=== PATIENT | female | born 1960 | race Caucasian/White ===

== ENCOUNTER 2023-09-09 15:15 | Outpatient (RCR) | payer BC, SELFPAY | END 2023-09-09 23:59 | disposition home or self-care (01) | LOC: RPT 15:15 | PROVIDERS: ATTENDING PHYSICIAN Family Medicine | DX: M76.31 Iliotibial band syndrome, right leg (principal); M25.561 Pain in right knee; R26.89 Other abnormalities of gait and mobility | CPT/HCPCS: 97110; 97140; 97164 ==

== ENCOUNTER 2023-10-28 15:55 | Outpatient (RCR) | payer BC, SELFPAY | END 2023-10-28 23:59 | disposition home or self-care (01) | LOC: RPT 15:55 | PROVIDERS: ATTENDING PHYSICIAN Family Medicine | DX: M25.561 Pain in right knee (principal); M76.31 Iliotibial band syndrome, right leg; Z73.6 Limitation of activities due to disability; R26.89 Other abnormalities of gait and mobility; R26.2 Difficulty in walking, not elsewhere classified; M62.81 Muscle weakness (generalized); M54.16 Radiculopathy, lumbar region | CPT/HCPCS: 97010; 97110; 97140 ==

== ENCOUNTER → 2023-11-15 07:07 | Outpatient (REF) | payer BC, SELFPAY | LOC: PAVMRI 07:07 | PROVIDERS: ATTENDING PHYSICIAN Pain Medicine Interventional Pain Medicine; FAMILY PHYSICIAN Internal Medicine | DX: M54.16 Radiculopathy, lumbar region (principal) | CPT/HCPCS: 72148 ==

== ENCOUNTER → 2023-12-11 13:15 | Outpatient (REF) | payer BC, SELFPAY ==
[2023-12-11 13:34] VITALS: BP 137/86; BP_SYST 67
[2023-12-11 13:34] LABS: Hematocrit 33.1 % (37.0-47.0); Hemoglobin 11.2 g/dL (12.0-16.0); Mean Corp Hgb Conc. 33.8 g/dL (33.0-37.0); Mean Corpuscular Hgb 30.3 pg (27.0-31.0); Mean Corpuscular Volume 89.5 fL (81.0-99.0); Mean Platelet Volume 10.7 fL (7.4-10.4); Platelet Count 255 10^3/uL (130-400); Red Cell Dist. Width 13.1 % (11.5-14.5); White Blood Cell Count 7.3 10^3/uL (4.8-10.8)
[2023-12-11 13:53] LABS: PT 13.2 Sec (11.4-14.6)
== END ==
LOC: RADI 13:15
PROVIDERS: ATTENDING PHYSICIAN Pain Medicine Interventional Pain Medicine; FAMILY PHYSICIAN Internal Medicine
DX: M54.16 Radiculopathy, lumbar region (principal); Z01.812 Encounter for preprocedural laboratory examination; Z01.818 Encounter for other preprocedural examination
CPT/HCPCS: 36415; 62323; 85027; 85610

== ENCOUNTER → 2023-12-24 11:00 | Outpatient (REF) | payer BC, SELFPAY ==
[2023-12-26 20:21] LABS: Bacterial Vaginosis by TMA Positive; Candida glabrata by TMA Negative; Candida species by TMA Negative; Trichomonas vaginalis by TMA Negative
== END ==
LOC: CLAB 11:00
PROVIDERS: ATTENDING PHYSICIAN Family Medicine
DX: N89.8 Other specified noninflammatory disorders of vagina (principal)
CPT/HCPCS: 81513; 87481; 87661

== ENCOUNTER → 2024-01-20 08:16 | Outpatient (REF) | payer BC, SELFPAY ==
[2024-01-20 09:29] LABS: % Basophils 1.2 % (0-2); % Lymphocytes 34.8 % (20.5-51.1); % Monocytes 9.5 % (1.7-9.3); % Neutrophils 51.5 % (42.2-75.2); Absolute Basophils 0.1 10^3/uL (0-0.2); Absolute Eosinophils 0.1 10^3/uL (0-0.7); Absolute Lymphocytes 1.5 10^3/uL (1.2-3.4); Absolute Monocytes 0.4 10^3/uL (0.1-0.6); Absolute Neutrophils 2.2 10^3/uL (1.4-6.5); Hemoglobin 11.2 g/dL (12.0-16.0); Mean Corp Hgb Conc. 33.9 g/dL (33.0-37.0); Mean Corpuscular Hgb 30.7 pg (27.0-31.0); Mean Corpuscular Volume 90.4 fL (81.0-99.0); Mean Platelet Volume 11.4 fL (7.4-10.4); Nucleated Red Blood Cells % 0 %; Platelet Count 257 10^3/uL (130-400); Red Blood Cell Count 3.65 10^6/uL (4.20-5.40); Red Cell Dist. Width 13.5 % (11.5-14.5); White Blood Cell Count 4.3 10^3/uL (4.8-10.8)
[2024-01-20 11:23] LABS: Glycohemoglobin (HgbA1c) 5.7 % (4.0-5.6)
[2024-01-20 12:00] LABS: ALT (SGPT) 21 U/L (0-35); AST (SGOT) 31 U/L (14-36); Alkaline Phosphatase 100 U/L (38-126); Blood Urea Nitrogen 15 mg/dl (7-17); Calcium 9.4 mg/dl (8.4-10.2); Carbon Dioxide 24 mmol/L (22-30); Chloride 104 mmol/L (98-107); Glucose 93 mg/dl (70-99); HDL Cholesterol 91 mg/dl; Potassium 4.6 mmol/L (3.5-5.1); Sodium 134 mmol/L (135-145); Total Bilirubin 0.5 mg/dl (0.2-1.3); Total Protein 6.6 g/dl (6.3-8.2); Triglyceride 77 mg/dl (10-149); Uric Acid 3.3 mg/dl (2.5-6.2); Very Low Density Lipoprotein 15 mg/dl (0-30); eGFR > 60.00
[2024-01-20 12:16] LABS: Free T4 1.11 ng/dl (0.78-2.19)
[2024-01-20 12:31] LABS: TSH 0.78 uIU/ml (0.47-4.68)
[2024-01-20 12:59] LABS: LDL Cholesterol, Calculated 78 mg/dl; Total Cholesterol 184 mg/dl (50-199)
== END ==
LOC: REG 08:16
PROVIDERS: ATTENDING PHYSICIAN Internal Medicine; FAMILY PHYSICIAN Family Medicine
DX: E78.2 Mixed hyperlipidemia (principal); I10 Essential (primary) hypertension; G47.33 Obstructive sleep apnea (adult) (pediatric); R73.03 Prediabetes; E88.810 Metabolic syndrome
CPT/HCPCS: 36415; 80053; 80061; 83036; 84439; 84443; 84550; 85025

== ENCOUNTER → 2024-01-24 12:21 | Outpatient (REF) | payer BC, SELFPAY ==
[2024-01-24 12:59] VITALS: BP 145/85; BP_SYST 64
[2024-01-24 13:45] VITALS: BP 135/77
== END ==
LOC: RADI 12:21
PROVIDERS: ATTENDING PHYSICIAN Pain Medicine Interventional Pain Medicine; FAMILY PHYSICIAN Internal Medicine
DX: M54.16 Radiculopathy, lumbar region (principal)
CPT/HCPCS: 62323

== ENCOUNTER → 2024-02-10 13:29 | Outpatient (REF) | payer BC, SELFPAY ==
[2024-02-10 13:45] VITALS: BP 147/79; BP_SYST 59
[2024-02-10 14:20] VITALS: BP 140/58; BP_SYST 59
[2024-02-10 14:23] VITALS: BP 140/58; BP_SYST 59
[2024-02-10 14:24] VITALS: BP 140/58
== END ==
LOC: RADI 13:29
PROVIDERS: ATTENDING PHYSICIAN Pain Medicine Interventional Pain Medicine; FAMILY PHYSICIAN Internal Medicine
DX: M54.16 Radiculopathy, lumbar region (principal)
CPT/HCPCS: 62323

== ENCOUNTER → 2024-03-10 11:19 | Outpatient (REF) | payer BC, SELFPAY ==
[2024-03-10 12:08] LABS: Urine Albumin Negative (Neg - Trace); Urine Bilirubin 2+ (Negative); Urine Character Clear (Clear); Urine Glucose Negative (Negative); Urine Ketone Negative (Negative); Urine Leukocyte 1+ (Negative); Urine Nitrite Positive (Negative); Urine Occult Blood Negative (Negative); Urine Urobilinogen 3+ (Neg - 1+)
[2024-03-10 12:26] LABS: Urine Color Orange
[2024-03-10 12:38] LABS: Urine Bacteria Few (Negative); Urine Squamous Cell 26-30 /LPF (Few); Urine White Cell 50-60 /HPF (0-5)
[2024-03-10 12:39] LABS: Urine Red Blood Cell 0-2 /HPF (0-2)
== END ==
LOC: REG 11:19
PROVIDERS: ATTENDING PHYSICIAN Family Medicine
DX: N39.0 Urinary tract infection, site not specified (principal)
CPT/HCPCS: 81003; 81015; 87077; 87086; 87186

== ENCOUNTER → 2024-04-20 08:37 | Outpatient (REF) | payer BC, SELFPAY ==
[2024-04-20 11:37] LABS: Urine Albumin Negative (Neg - Trace); Urine Bilirubin Negative (Negative); Urine Character Clear (Clear); Urine Color Yellow; Urine Glucose Negative (Negative); Urine Ketone Negative (Negative); Urine Leukocyte 2+ (Negative); Urine Nitrite Negative (Negative); Urine Occult Blood Negative (Negative); Urine Urobilinogen Negative (Neg - 1+)
[2024-04-20 11:40] LABS: % Eosinophils 2.5 % (0-6); % Immature Granulocytes 0.2 % (0-0.5); % Lymphocytes 30.1 % (20.5-51.1); % Neutrophils 57.2 % (42.2-75.2); Absolute Basophils 0.1 10^3/uL (0-0.2); Absolute Eosinophils 0.1 10^3/uL (0-0.7); Absolute Lymphocytes 1.5 10^3/uL (1.2-3.4); Absolute Monocytes 0.4 10^3/uL (0.1-0.6); Absolute Neutrophils 2.8 10^3/uL (1.4-6.5); Hematocrit 34.4 % (37.0-47.0); Hemoglobin 11.5 g/dL (12.0-16.0); Mean Corp Hgb Conc. 33.4 g/dL (33.0-37.0); Mean Corpuscular Hgb 30.1 pg (27.0-31.0); Mean Corpuscular Volume 90.1 fL (81.0-99.0); Mean Platelet Volume 11.9 fL (7.4-10.4); Nucleated Red Blood Cells % 0 %; Platelet Count 221 10^3/uL (130-400); Red Blood Cell Count 3.82 10^6/uL (4.20-5.40); Red Cell Dist. Width 13.1 % (11.5-14.5); White Blood Cell Count 4.9 10^3/uL (4.8-10.8)
[2024-04-20 11:58] LABS: Urine Bacteria Few (Negative); Urine Red Blood Cell 0-2 /HPF (0-2)
[2024-04-20 12:00] LABS: ALT (SGPT) 23 U/L (0-35); AST (SGOT) 33 U/L (14-36); Albumin 4.2 g/dl (3.5-5.0); Alkaline Phosphatase 109 U/L (38-126); Blood Urea Nitrogen 15 mg/dl (7-17); Calcium 9.4 mg/dl (8.4-10.2); Carbon Dioxide 25 mmol/L (22-30); Chloride 100 mmol/L (98-107); Glucose 96 mg/dl (70-99); HDL Cholesterol 83 mg/dl; LDL Cholesterol, Calculated 94 mg/dl; Magnesium 2.2 mg/dl (1.6-2.3); Phosphorus 4.5 mg/dl (2.5-4.5); Potassium 4.3 mmol/L (3.5-5.1); Sodium 133 mmol/L (135-145); Total Bilirubin 0.6 mg/dl (0.2-1.3); Total Cholesterol 191 mg/dl (50-199); Total Protein 6.6 g/dl (6.3-8.2); Triglyceride 71 mg/dl (10-149); Very Low Density Lipoprotein 14 mg/dl (0-30); eGFR > 60.00
[2024-04-20 12:16] LABS: TSH Reflex To Free T4 1.24 uIU/ml (0.47-4.68)
[2024-04-20 12:20] LABS: HCG, Serum Qualitative Screen Negative
[2024-04-20 12:30] LABS: Glycohemoglobin (HgbA1c) 5.5 % (4.0-5.6)
[2024-04-20 12:30] LABS: Amphetamines Negative (Negative); Barbiturates Negative (Negative); Benzodiazepines Negative (Negative); Buprenorphine Negative (Negative); Cocaine Negative (Negative); Marijuana Positive (Negative); Methadone Negative (Negative); Methamphetamines Negative (Negative); Opiates Negative (Negative); Phencyclidine Negative (Negative); Tricyclic Antidepressants Negative (Negative)
== END ==
LOC: HWLAB 08:37
PROVIDERS: ATTENDING PHYSICIAN Family Medicine
DX: E66.01 Morbid (severe) obesity due to excess calories (principal)
CPT/HCPCS: 36415; 80053; 80061; 80306; 81003; 81015; 83036; 83735; 84100; 84443; 84703; 85025

== ENCOUNTER → 2024-05-07 10:35 | Outpatient (REF) | payer BC, SELFPAY ==
[2024-05-07 12:09] LABS: ALT (SGPT) 24 U/L (0-35); AST (SGOT) 33 U/L (14-36); Albumin 4.2 g/dl (3.5-5.0); Alkaline Phosphatase 102 U/L (38-126); Blood Urea Nitrogen 14 mg/dl (7-17); Calcium 9.6 mg/dl (8.4-10.2); Carbon Dioxide 24 mmol/L (22-30); Chloride 102 mmol/L (98-107); Glucose 91 mg/dl (70-99); Magnesium 2.1 mg/dl (1.6-2.3); Potassium 4.7 mmol/L (3.5-5.1); Sodium 134 mmol/L (135-145); Total Bilirubin 0.5 mg/dl (0.2-1.3); Total Protein 6.8 g/dl (6.3-8.2); eGFR > 60.00
== END ==
LOC: REG 10:35
PROVIDERS: FAMILY PHYSICIAN Internal Medicine
DX: F50.81 Binge eating disorder (principal)
CPT/HCPCS: 36415; 80053; 83735

== ENCOUNTER → 2024-06-08 08:13 | Outpatient (REF) | payer BC, SELFPAY | LOC: CPAP 08:13 | PROVIDERS: ATTENDING PHYSICIAN Obstetrics & Gynecology Gynecology | DX: Z01.419 Encounter for gynecological examination (general) (routine) without abnormal findings (principal); N76.0 Acute vaginitis | CPT/HCPCS: 87070; 87102; 87624; G0123 ==

== ENCOUNTER → 2024-06-09 10:57 | Outpatient (REF) | payer BC, SELFPAY ==
[2024-06-09 12:41] LABS: ALT (SGPT) 23 U/L (0-35); AST (SGOT) 33 U/L (14-36); Albumin 4.3 g/dl (3.5-5.0); Alkaline Phosphatase 109 U/L (38-126); Blood Urea Nitrogen 15 mg/dl (7-17); Calcium 9.1 mg/dl (8.4-10.2); Carbon Dioxide 26 mmol/L (22-30); Chloride 101 mmol/L (98-107); Glucose 93 mg/dl (70-99); Magnesium 2.2 mg/dl (1.6-2.3); Phosphorus 3.6 mg/dl (2.5-4.5); Potassium 5.1 mmol/L (3.5-5.1); Sodium 139 mmol/L (135-145); Total Bilirubin 0.5 mg/dl (0.2-1.3); Total Protein 6.8 g/dl (6.3-8.2); eGFR > 60.00
== END ==
LOC: REG 10:57
PROVIDERS: ATTENDING PHYSICIAN Nurse Practitioner Psychiatric/Mental Health; FAMILY PHYSICIAN Internal Medicine
DX: F50.81 Binge eating disorder (principal)
CPT/HCPCS: 36415; 80053; 83735; 84100

== ENCOUNTER → 2024-08-17 17:08 | Outpatient (REF) | payer BC, SELFPAY | LOC: WDC 17:08 | PROVIDERS: ATTENDING PHYSICIAN Obstetrics & Gynecology Gynecology; FAMILY PHYSICIAN Internal Medicine | DX: Z12.31 Encounter for screening mammogram for malignant neoplasm of breast (principal); Z01.419 Encounter for gynecological examination (general) (routine) without abnormal findings | CPT/HCPCS: 77063; 77067 ==

== ENCOUNTER → 2025-03-15 06:40 | Outpatient (REF) | payer BC, SELFPAY | LOC: MRI 06:40 | PROVIDERS: ATTENDING PHYSICIAN Nurse Practitioner Family; FAMILY PHYSICIAN Family Medicine | DX: M25.562 Pain in left knee (principal) | CPT/HCPCS: 73721 ==

== ENCOUNTER 2025-04-26 16:07 | Outpatient (RCR) | payer BC, SELFPAY | END 2025-04-26 23:59 | disposition home or self-care (01) | LOC: RPT 16:07 | PROVIDERS: ATTENDING PHYSICIAN Orthopaedic Surgery; FAMILY PHYSICIAN Family Medicine | DX: M17.12 Unilateral primary osteoarthritis, left knee (principal); Z73.6 Limitation of activities due to disability; R26.89 Other abnormalities of gait and mobility; M62.81 Muscle weakness (generalized) | CPT/HCPCS: 97110; 97140; 97161 ==

== ENCOUNTER 2025-05-17 16:00 | Outpatient (RCR) | payer BC, SELFPAY | END 2025-05-17 23:59 | disposition home or self-care (01) | LOC: RPT 16:00 | PROVIDERS: ATTENDING PHYSICIAN Orthopaedic Surgery; FAMILY PHYSICIAN Family Medicine | DX: M17.12 Unilateral primary osteoarthritis, left knee (principal); Z73.6 Limitation of activities due to disability; R26.89 Other abnormalities of gait and mobility; M62.81 Muscle weakness (generalized) | CPT/HCPCS: 97110; 97112; 97140 ==

== ENCOUNTER → 2025-08-19 07:02 | Outpatient (REF) | payer BC, SELFPAY | LOC: WDC 07:02 | PROVIDERS: ATTENDING PHYSICIAN Obstetrics & Gynecology Gynecology; FAMILY PHYSICIAN Family Medicine | DX: Z12.31 Encounter for screening mammogram for malignant neoplasm of breast (principal) | CPT/HCPCS: 77063; 77067 ==

== ENCOUNTER → 2025-08-21 07:51 | Outpatient (REF) | payer BC, SELFPAY ==
[2025-08-21 08:44] LABS: Hematocrit 34.3 % (37.0-47.0); Hemoglobin 11.3 g/dL (12.0-16.0); Mean Corp Hgb Conc. 32.9 g/dL (33.0-37.0); Mean Corpuscular Volume 88.6 fL (81.0-99.0); Nucleated Red Blood Cells % 0 %; Platelet Count 247 10^3/uL (130-400); Red Cell Dist. Width 13.0 % (11.5-14.5)
[2025-08-21 09:26] LABS: ALT (SGPT) 21 U/L (0-35); AST (SGOT) 28 U/L (14-36); Albumin 4.2 g/dl (3.5-5.0); Alkaline Phosphatase 90 U/L (38-126); Blood Urea Nitrogen 12 mg/dl (7-17); Calcium 9.2 mg/dl (8.4-10.2); Carbon Dioxide 29 mmol/L (22-30); Chloride 101 mmol/L (98-107); Glucose 91 mg/dl (70-99); HDL Cholesterol 79 mg/dl; LDL Cholesterol, Calculated 87 mg/dl; Potassium 4.5 mmol/L (3.5-5.1); Sodium 132 mmol/L (135-145); Total Protein 6.8 g/dl (6.3-8.2); Very Low Density Lipoprotein 19 mg/dl (0-30); eGFR > 60.00
[2025-08-21 10:11] LABS: Glycohemoglobin (HgbA1c) 5.7 % (4.0-5.9)
== END ==
LOC: REG 07:51
PROVIDERS: ATTENDING PHYSICIAN Family Medicine
DX: E66.01 Morbid (severe) obesity due to excess calories (principal); E78.00 Pure hypercholesterolemia, unspecified; R73.03 Prediabetes; I10 Essential (primary) hypertension
CPT/HCPCS: 36415; 80053; 80061; 83036; 84443; 85025